=== PATIENT | female | born 1980 | race Two or more races ===

== ENCOUNTER 2024-01-17 10:36 | Emergency (ER) | payer MEDICAID, SELFPAY ==
[2024-01-17 10:45] VITALS: BP 170/94; PULSE 124; RESP 16; TEMP 36.9; O2SAT 95; BMI 27.0
--- NOTE | 2024-01-17 11:31 | ED_ITS ---
HPI - Eye Problem General Chief complaint: Eye Problems Stated complaint: foreign body in LT eye Time Seen by Provider: 01/17/24 11:14 Related Data Allergies Allergy/AdvReac Type Severity Reaction Status Date / Time latex Allergy Rash Verified 01/17/24 10:45 fentanyl AdvReac Mild Unknown Verified 01/17/24 10:49 [facility] Social History Social History Advance Directives: Yes Advance Directives Information Provided: Yes Advance Directives on File: No Physical Exam 2 Vital Signs: Vital Signs: Last Vital Signs Temp 98.5 F 01/17/24 10:45 Pulse 124 H 01/17/24 10:45 Resp 16 01/17/24 10:45 BP 170/94 H 01/17/24 10:45 Pulse Ox 95 01/17/24 10:45 O2 Del Method Room Air 01/17/24 10:45 BMI result Body Mass Index 27.0 Course Course Course Narrative: This is a rapid medical exam. Patient believes that she got last in her left eye last night and now feels like she has pain to the eye. Patient will need eye exam and visual acuity. Before this could be completed she decided that she wanted to leave without completing treatment. We did request that she remain for treatment but she declined this and walked out of the emergency room Discharge Plan Discharge Clinical Impression: Acute eye pain Patient Disposition: Left W/O Completing Treatment Print Language: Sami
== END 2024-01-17 11:47 | disposition left against medical advice (07) ==
PROVIDERS: Emergency Provider Emergency Medicine
DX: H57.12 Ocular pain, left eye (principal)
CPT/HCPCS: 99281